=== PATIENT | female | born 1945 | race Caucasian/White ===

== ENCOUNTER 2018-11-27 06:00 | Inpatient (IN) | payer OTHER, MEDICARE, SELFPAY ==
[2018-11-25 08:49] VITALS: BMI 52.5
[2018-11-27] VITALS (14 sets, daily range): BP systolic 83–135; BP diastolic 46–85; PULSE 61–94; RESP 10–18; TEMP 35.9–36.6; O2SAT 92–99; BMI 52.1
--- NOTE | 2018-11-27 06:00 | DI.RAD.S_ITS ---
PROCEDURE: XR KNEE LT 1TO2V INDICATIONS: prosthesis placement TECHNIQUE: 2 view(s) of the knee acquired. COMPARISON: None. FINDINGS: Bones: Patient is status post knee joint arthroplasty. Hardware components are in expected positions. Visualized bony structures are intact. Soft tissues: Overlying postoperative changes are noted. A postoperative drain has been placed. IMPRESSION: Normal postoperative examination. Dictated by: Shorty Torres M.D. on 11/27/2018 at 13:03 Approved by: Shorty Torres M.D. on 11/27/2018 at 13:03
[2018-11-27] MEDS: ACETAMINOPHEN 325 MG TABLET 975 MG PO ×3 (06:54→21:44)
[2018-11-27] MEDS: CELECOXIB 200 MG CAPSULE PO (06:55)
[2018-11-27] MEDS: PREGABALIN 75 MG CAPSULE PO (06:55)
[2018-11-27] MEDS: VANCOMYCIN 1,000 MG/200 ML FROZ.PIGGY 200 MG IV (07:30)
--- NOTE | 2018-11-27 07:44 | PM.PREOP ---
Pre-operative Note Interval Note History & Physical reviewed/Exam performed by Physician: Yes Changes to H&P: Yes
[2018-11-27] MEDS: CEFAZOLIN VIAL 3 GM in SODIUM CHLORIDE 0.9% 100 ML 200 ML IV (07:45)
--- NOTE | 2018-11-27 07:48 | SUR.PREOP ---
3 attempts at IV start by Pili Yancey OPD RN. One attempt at IV start by CHARLENE Choi RN. Pt tolerated well.
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
[2018-11-27] MEDS: TRANEXAMIC ACID 1,000 MG VIAL 1000 MG INJ (08:15)
[2018-11-27] MEDS: BUPIVACAINE LIPOSOME 266 MG/20 ML VIAL INJ (08:30)
[2018-11-27] MEDS: BUPIVACAINE 0.25% W/ EPI VIAL 60 ML INJ (08:30)
--- NOTE | 2018-11-27 08:48 | SUR.OPER ---
Supine on padded OR bed. Pillow under head, arms secured on padded armboards <90 degree abduction. Safety belt across torso. Non-operative leg secured with tape over blanket over lower leg. Operative leg secured in DeMayo/Woo positioner. Foam padded brace at thigh of operative leg.
[2018-11-27] MEDS: LACTATED RINGERS 1,000 ML 42 ML IV (12:10)
--- NOTE | 2018-11-27 14:15 | SUR.PHASEI ---
REPORT CALLED TO DANYELLE TRINIDAD ON ACUTE CARE FLOOR. PT IN STABLE CONDITION, VSS. PT SITTING UP IN BED AND TALKING TO RN. PT TOLERATING ICE CHIPS WITHOUT ANY DIFFICULTLY. PT DENIES ANY NAUSEA. PT TRANSFERED TO ACUTE CARE FLOOR. PT ALERT AND TALKING TO RN DURING TRANSPORT. PT DAUGHTER IN ROOM UPON ARRIVAL TO ROOM. BEDSIDE REPORT GIVEN TO DANYELLE TRINIDAD. PT TRANSFERED TO DANYELLE TRINIDAD IN STABLE CONDITION, VSS.
[2018-11-27] MEDS: LACTATED RINGERS 1,000 ML 125 ML IV ×2 (14:52→22:52)
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
[2018-11-27] MEDS: OXYCODONE IR 5 MG TABLET PO ×2 (15:44→22:58)
[2018-11-27] MEDS: CEFAZOLIN 2 GM/100 ML FROZ.PIGGY IV (15:45)
[2018-11-27] MEDS: DOCUSATE 100 MG CAPSULE PO (21:44)
[2018-11-27] MEDS: ASPIRIN EC 81 MG TABLET PO (21:44)
[2018-11-27] MEDS: hydroCHLOROthiazide 12.5 MG CAPSULE PO (22:53)
[2018-11-27] MEDS: CITALOPRAM 20 MG TABLET PO (22:53)
[2018-11-27] MEDS: LISINOPRIL 20 MG TABLET PO (22:54)
[2018-11-27] MEDS: dilTIAZem CD 240 MG CAP PO (22:54)
[2018-11-28] MEDS: CEFAZOLIN 2 GM/100 ML FROZ.PIGGY IV (00:29)
[2018-11-28 01:06] VITALS: BP 124/67; PULSE 65; RESP 16; TEMP 36.8; O2SAT 97
[2018-11-28 05:32] VITALS: BP 130/66; PULSE 77; RESP 16; TEMP 36.8; O2SAT 100
[2018-11-28] MEDS: OXYCODONE IR 5 MG TABLET PO ×2 (05:44→10:41)
[2018-11-28 07:15] VITALS: BP 125/74; PULSE 74; RESP 18; TEMP 36.8; O2SAT 97
[2018-11-28 07:16] LABS: Hemoglobin 9.6 g/dL (12.0-16.0)
[2018-11-28] MEDS: ACETAMINOPHEN 325 MG TABLET 975 MG PO (08:25)
[2018-11-28] MEDS: ASPIRIN EC 81 MG TABLET PO (08:25)
[2018-11-28] MEDS: DOCUSATE 100 MG CAPSULE PO (08:25)
--- NOTE | 2018-11-28 09:09 | PM.PNPO.1 ---
Subjective Date Patient Seen: 11/28/18 Time Patient Seen: 09:10 Interval history: Hospital day 2, postop day 1 following revision left total knee arthroplasty by Dr. Ford. Patient remained stable postoperatively. She was up with physical therapy yesterday who felt that she would be okay to go home with possible home health PT. Dr. Ford had recommended eating home health PT for the 1st 1-2 weeks postoperatively because of her limited mobility. She does have some postoperative anemia noted this morning with H&H 9.6/29.9. Knee Gram stain noted no organisms and 0 to moderate WBC. Cultures still pending. Pain controlled with oxycodone. Exam Vital Signs (past 8 hours): - 11/28/18 05:32 11/28/18 07:15 Temperature 98.3 F 98.2 F Pulse Rate 77 74 Respiratory Rate 16 18 Blood Pressure 130/66 125/74 Pulse Oximetry 100 97 Oxygen Delivery Method Room Air Oxygen Flow Rate 2 Narrative Exam Narrative: Alert, oriented no acute distress sitting in chair. Legs. Rob wrap and a irma dressing to the left knee as intact and dry without drainage or inflammation. No calf pain or swelling. Pulses symmetrical. Objective Labs Result Diagrams: 11/28/18 07:05 Labs: Laboratory Results - last 24 hr 11/28/18 07:05 Hgb 9.6 L Hct 29.0 L Assessment & Plan Post-op (1) Postoperative anemia: Current Visit: Yes Status: Acute Postoperative Procedures Operation Date: 11/27/18 07:45 Actual Procedures Side Surgeon p Revision, total knee replacement, femoral & enire tibial component Left Julita Ford MD plan: Will recheck H&H in the morning. The patient will work with PT today. Kody on culture results. Anticipate possible discharge home tomorrow with [facility] PT.
[2018-11-28] MEDS: BUSPIRONE 5 MG TABLET PO (10:06)
--- NOTE | 2018-11-28 10:25 | PT.IPTN ---
Current Diagnoses Anemia, unspecified (11/27/18) Other mechanical complication of internal left knee prosthesis, initial encounter (11/27/18) Surgery Performed Operation Date: 11/27/18 07:45 Actual Procedures p Revision, total knee replacement, femoral & enire tibial component(Left) - Julita Ford MD Physical Therapy Treatment Note M2 PT-IP Current Condition Start: 11/27/18 16:32 Freq: NEEDED Status: Active Protocol: Document 11/27/18 15:30 AB (Rec: 11/27/18 16:47 AB [id number]) Physical Therapy Current Condition Current Condition Evaluation Date 11/27/18 Treatment Diagnosis s/p L TKA; difficulty in walking Onset Date 11/27/18 Weight Bearing Status Weight Bearing Status Weight Bear as Tolerated M3 PT-IP Subjective Start: 11/27/18 16:32 Freq: NEEDED Status: Active Protocol: Document 11/28/18 10:25 GGD (Rec: 11/28/18 12:05 GGD [id number]) Subjective Physical Therapy Visit Type Type Treatment Note Visit Start Time 11:15 Visit Stop Time 11:45 Total Visit Minutes 30 Number of ENGINEER FISHING VESSEL Visits 1 Physical Therapy Visit Comments Patient Comments Pt states she feeling better. Therapy Pain Assessment Pain When Pain Assessed At Rest Pain Present Pain Present Pain Reported Location Left Knee Intensity 4 Scale Used Numeric (1 - 10) M4 PT-IP Mobility and Gait Start: 11/27/18 16:32 Freq: NEEDED Status: Active Protocol: Document 11/28/18 10:25 GGD (Rec: 11/28/18 12:05 GGD [id number]) PT-Bed Mobility Assessment Supine to Sit Supine to Sit Standby Assistance Sit to Supine Sit to Supine Standby Assistance Scooting Scooting to Edge of Bed Independent PT-Transfer Assessment Sit to and From Stand Sit to and from Stand Standby Assistance Use of Upper Extremities Equipment Transfer Assistive Device Gait Belt Front Wheeled Walker Orthotic/Prosthetic Devices or Brace: No Transfers Transfer Destination Bed Toilet Transfer Ability Level of Assist Contact Guard Assistance Use of Upper Extremities Gait Assessment Gait Gait Assistance Required: Contact Guard Assist Distance (Feet) 140 Able to Maintain Weight Bearing Status Yes During Gait Assistive Devices Assistive Device Gait Belt Front Wheeled Walker Orthotic/Prosthetic Devices or Brace: No Gait Deviations General Gait Pattern Antalgic Decreased Stride Length Decreased Feet Clearance Factors Limiting Gait Function Factors Limiting Gait Function Decreased Activity Tolerance Decreased Strength Limited Range of Motion Pain Poor Balance M5 PT-IP Objective Assessments Start: 11/27/18 16:32 Freq: NEEDED Status: Active Protocol: Document 11/27/18 15:30 AB (Rec: 11/27/18 16:47 AB [id number]) Orientation Orientation/Cognition Level of Alertness Alert Orientation Name Age Birthday Month Date Year Day of Week Place Situation Language Function Ability No Deficits Noted Safety Awareness Understands Safety Issues Memory Description No Deficits Noted Gross Range of Motion Lower Extremity ROM Assessment Bilaterally Impaired Impairments L knee flexion: ~ 60 degree Strength Lower Extremity Strength Assessment Left Impaired Knee 4-/5 Sensation Assessment Sensation Gross Sensation WNL Muscle Tone Muscle Tone WNL Yes M6 PT-IP Treatment Start: 11/27/18 16:32 Freq: NEEDED Status: Active Protocol: Document 11/28/18 10:25 GGD (Rec: 11/28/18 12:05 GGD [id number]) Physical Therapy Treatment Exercises Exercises Ankle Pumps Quad Sets Heel Slides Straight Leg Raises Seated Knee Flexion/Extension Education Education Provided Safety M7 PT-IP Assessment and Plan Start: 11/27/18 16:32 Freq: NEEDED Status: Active Protocol: Document 11/28/18 10:25 GGD (Rec: 11/28/18 12:05 GGD [id number]) PT Summary Assessment and Plan Summary Assessment Summary Pt improving with mobility. She was SBA for bed mobility. She was safe and stable with gait with FWW. She safe for home D/C when medically stable . Frequency of Treatment Frequency Of Treatment Twice a Day Treatment Plan Physical Therapy Treatment Plan Bed Mobility Training Transfer Training Gait Training Therapeutic Exercise Balance Retraining Post Op Education Discharge Planning Hot or Cold Pack Neuromuscular Re-ed Coordination Retraining Manual Therapy Other Recommendations and Next Treatment ambulation Focus Recommendations To Nursing Amount of Assist Needed 1 Person Assist Discharge Recommendations PT Discharge Recommendations Home with Assistance Home Health
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
[2018-11-28 11:39] VITALS: BP 108/61; PULSE 76; RESP 16; TEMP 36.6; O2SAT 98
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
== END 2018-11-28 13:30 | disposition home health service (06) | DRG 467 ==
PROVIDERS: Admitting Provider Orthopaedic Surgery; Visit Provider Orthopaedic Surgery
PROC: 0SPD0JZ Removal of Synthetic Substitute from Left Knee Joint, Open Approach (ICD-10-PCS; principal; 2018-11-27 07:45)
DX: T84.033A Mechanical loosening of internal left knee prosthetic joint, initial encounter (principal); Z68.43 Body mass index [BMI] 50.0-59.9, adult; E66.9 Obesity, unspecified; I10 Essential (primary) hypertension; F32.9 Major depressive disorder, single episode, unspecified; D64.9 Anemia, unspecified; V43.52XA Car driver injured in collision with other type car in traffic accident, initial encounter
CPT/HCPCS: 36415; 73560; 85014; 85018; 87070; 87075; 87205; 97110; 97116; 97161; 97530; C1776; C9290; J0690; J1100; J2405; J2704; J3370